=== PATIENT | female | born 1980 | race American Indian/Alaskan Native ===

== ENCOUNTER 2018-08-15 20:20 | Emergency (ER) | payer OTHER ==
--- NOTE | 2018-08-15 20:50 | Event Note ---
ED Screening Note Date of service: 08/15/18 Time: 20:45 ED Screening Note: 38 y/o female c/o left arm and forearm s/p fall This initial assessment/diagnostic orders/clinical plan/treatment(s) is/are subject to change based on patients health status, clinical progression and re- assessment by fellow clinical providers in the ED. Further treatment and workup at subsequent clinical providers discretion. Patient/guardian urged not to elope from the ED as their condition may be serious if not clinically assessed and managed. Initial orders include:
--- NOTE | 2018-08-15 22:52 | XRay Report ---
PROCEDURE: XR HAND 2V LT TECHNIQUE: Left hand, 2 views HISTORY: hand pain COMPARISONS: None FINDINGS: No acute fracture or dislocation. No focal osseous lesions. No radiopaque foreign body. IMPRESSION: No acute fracture or dislocation. This document is electronically signed by Josefina Haile MD., August 15 2018 10:51:06 PM ET
--- NOTE | 2018-08-15 22:58 | XRay Report ---
PROCEDURE: XR HIP 2-3V LT AP view of the pelvis was acquired as well as AP and lateral views of the left hip. No fracture is seen in the pelvis or left hip. Hip joint space appears preserved. IMPRESSION: No fracture is seen in the pelvis or left hip This document is electronically signed by Akbar Patterson MD., August 15 2018 10:56:37 PM ET
--- NOTE | 2018-08-15 22:59 | XRay Report ---
PROCEDURE: XR FOREARM LT HISTORY: fall arm pain. FINDINGS: AP and lateral views of the left forearm were acquired and demonstrate no fracture or malal ignment of the left forearm. IMPRESSION: No fracture is seen in the left forearm This document is electronically signed by Akbar Patterson MD., August 15 2018 10:58:02 PM ET
--- NOTE | 2018-08-15 22:59 | XRay Report ---
PROCEDURE: XR ELBOW 3+V LT HISTORY: fall FINDINGS: AP, lateral and oblique views of the left elbow were acquired and demonstrate no fracture o r malalignment of the left elbow. No joint effusion is seen. IMPRESSION: No fracture is seen in the left elbow This document is electronically signed by Akbar Patterson MD., August 15 2018 10:57:19 PM ET
[2018-08-16] MEDS ORDERED: NORCO 5/325 PO STA (02:44)
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
[2018-08-16 03:41] VITALS: BP 128/72
== END 2018-08-16 03:42 | disposition home or self-care (01) ==
LOC: ED 20:20
DX: M25.522 Pain in left elbow (principal); M25.552 Pain in left hip; Z98.51 Tubal ligation status; Z90.49 Acquired absence of other specified parts of digestive tract; Z88.8 Allergy status to other drugs, medicaments and biological substances; W19.XXXA Unspecified fall, initial encounter; Y93.89 Activity, other specified; Y92.89 Other specified places as the place of occurrence of the external cause; Y99.8 Other external cause status